=== PATIENT | male | born 1980 | race Caucasian/White ===

== ENCOUNTER 2016-12-12 19:06 | Inpatient (IN) | payer OTHER ==
[~2016-12-12] VITALS: Ht 180.3 cm; Wt 64.0 kg
[2016-12-12 20:48] LABS: HEMOGLOBIN 14.7 gm/dl (14.0-17.5); WHITE BLOOD COUNT 6.5 K/UL (4.5-11.0)
[2016-12-12 21:16] LABS: BUN/CREATININE RATIO 18 (0-10)
[2016-12-13] MEDS ORDERED: SUBOXONE 8 MG-1 EACH SL (00:01)
[2016-12-13] MEDS ORDERED: LEXAPRO10 MG PO (00:02)
[2016-12-13] MEDS ORDERED: PROTONIX40 MG PO (00:03)
[2016-12-13 03:38] LABS: HEMOGLOBIN 13.7 gm/dl (14.0-17.5); RED BLOOD COUNT 4.7 M/UL (4.20-5.50); WHITE BLOOD COUNT 6.4 K/UL (4.5-11.0)
[2016-12-13 03:56] LABS: BUN/CREATININE RATIO 19 (0-10)
[2016-12-15 04:50] LABS: HEMOGLOBIN 13.4 gm/dl (14.0-17.5); RED BLOOD COUNT 4.67 M/UL (4.20-5.50); WHITE BLOOD COUNT 6.8 K/UL (4.5-11.0)
[2016-12-15 05:18] LABS: BUN/CREATININE RATIO 21 (0-10)
[2016-12-15] MEDS ORDERED: LEVAQUIN500 MG PO (10:41)
[2016-12-15] MEDS ORDERED: TYLENOL W/CODEIN1 E1 PO (10:43)
== END 2016-12-15 11:30 | disposition home or self-care (01) | DRG 244 ==
LOC: ER1 19:06 → ZEROF 22:00 → PROG CARE 22:00
PROVIDERS: Internal Medicine; Student in an Organized Health Care Education/Training Program; ADMIT Internal Medicine
PROC: 02H63JZ Insertion of Pacemaker Lead into Right Atrium, Percutaneous Approach (ICD-10-PCS; principal; 2016-12-14)
PROC: 0JH606Z Insertion of Pacemaker, Dual Chamber into Chest Subcutaneous Tissue and Fascia, Open Approach (ICD-10-PCS; principal; 2016-12-14)
PROC: 02HK3JZ Insertion of Pacemaker Lead into Right Ventricle, Percutaneous Approach (ICD-10-PCS; principal; 2016-12-14)
DX: I49.5 Sick sinus syndrome (principal); I20.9 Angina pectoris, unspecified; R53.1 Weakness; R42 Dizziness and giddiness; R06.00 Dyspnea, unspecified; B19.20 Unspecified viral hepatitis C without hepatic coma; D69.6 Thrombocytopenia, unspecified; F32.9 Major depressive disorder, single episode, unspecified; F41.9 Anxiety disorder, unspecified; K21.9 Gastro-esophageal reflux disease without esophagitis; Z87.898 Personal history of other specified conditions; F17.210 Nicotine dependence, cigarettes, uncomplicated; Z79.891 Long term (current) use of opiate analgesic
CPT/HCPCS: 33208; 36415; 71010; 78452; 80048; 80053; 80307; 81001; 82550; 82553; 83874; 83880; 84439; 84443; 84484; 85025; 85027; 85610; 85730; 93005; 93017; 96374; 99285; A9502; C1785; C1898; J0461; J1200; J1644; J2250; J2270; J2785; J3010; J3370; J7030; J7040; J7050; J7070

== ENCOUNTER 2020-10-31 05:50 | Observation (INO) | payer OTHER ==
[~2020-10-31] VITALS: Ht 180.3 cm; Wt 72.6 kg
[~2020-10-31 05:50] MED LIST: LEVAQUIN500 MG PO; LEXAPRO10 MG PO; PROTONIX20 MG PO; PROTONIX40 MG PO; RAMIPRIL5 MG PO; SUBOXONE 8 MG-1 EACH SL; TYLENOL W/CODEIN1 E1 PO; ZOFRAN ODT 4 MG4 MG PO
[2020-10-31 06:42] LABS: HEMOGLOBIN 12.6 gm/dl (14.0-17.5); RED BLOOD COUNT 4.53 M/UL (4.20-5.50); WHITE BLOOD COUNT 9.2 K/UL (4.5-11.0)
[2020-10-31 07:03] LABS: BUN/CREATININE RATIO 18 (0-10)
[2020-10-31] MEDS ORDERED: SUBOXONE 8 MG-1 EACH SL (18:35)
[2020-11-01 06:52] LABS: HEMOGLOBIN 12.3 gm/dl (14.0-17.5); RED BLOOD COUNT 4.43 M/UL (4.20-5.50)
[2020-11-01 06:53] LABS: WHITE BLOOD COUNT 6.4 K/UL (4.5-11.0)
[2020-11-01 07:25] LABS: BUN/CREATININE RATIO 19 (0-10)
== END 2020-11-01 10:30 | disposition home or self-care (01) ==
LOC: ER1 05:50 → CDU 08:30 → MED SURG 4 17:01
PROVIDERS: Emergency Medicine; Physician Assistant; ADMIT Family Medicine
DX: G92 Toxic encephalopathy (principal); T42.4X5A Adverse effect of benzodiazepines, initial encounter; T43.625A Adverse effect of amphetamines, initial encounter; F13.10 Sedative, hypnotic or anxiolytic abuse, uncomplicated; F15.10 Other stimulant abuse, uncomplicated; F17.210 Nicotine dependence, cigarettes, uncomplicated; F41.9 Anxiety disorder, unspecified; F32.9 Major depressive disorder, single episode, unspecified; I10 Essential (primary) hypertension; I49.5 Sick sinus syndrome; E87.6 Hypokalemia; Z86.19 Personal history of other infectious and parasitic diseases; Z20.822 Contact with and (suspected) exposure to COVID-19; Z95.0 Presence of cardiac pacemaker; Z79.891 Long term (current) use of opiate analgesic; Z79.899 Other long term (current) drug therapy
CPT/HCPCS: 0240U; 36415; 70450; 71045; 80053; 80307; 81001; 82550; 82553; 83605; 83690; 84484; 85025; 99285; G0378; J2060; J7030